=== PATIENT | male | born 1985 | race Caucasian/White ===

== ENCOUNTER → 2017-07-29 | Outpatient (REF) | payer OTHER ==
[~2017-07-29] MED LIST: CIPR-214 PO; DOCU-416 PO; HYDR-4309 PO; IBUP600T22 PO; KET10 PO; LEVO-85 PO; LOR5/325 PO; OXYC-865 PO; SULF-198 PO
== END ==
PROVIDERS: ATTEND Physician Assistant Medical
DX: J02.9 Acute pharyngitis, unspecified (principal)
CPT/HCPCS: 87070

== ENCOUNTER 2018-04-05 08:26 | Emergency (ER) | payer SELFPAY ==
[~2018-04-05 08:26] MED LIST changes: -HYDR-4309 PO; +HYDR-653 PO
--- NOTE | 2018-04-05 08:49 | ER Report ---
History and Physical Time Seen By MD: 08:32 Hx. of Stated Complaint: PT REPORTS FALLING LAST NIGHT, REPORTS RIGHT FOREARM PAIN HPI/ROS CHIEF COMPLAINT: Right forearm pain HISTORY OF PRESENT ILLNESS: Patient is a 32-year-old male with no other significant past medical history who presents to the emergency department complaining of mid shaft right forearm pain status post fall last evening. Patient states that he was bringing his dogs and and slipped on the outside of his house causing him to strike his right forearm against the doorframe of his house. Since that time he's had increased pain and swelling and decreased range of motion secondary to pain. 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 Allergies: Coded Allergies: Penicillins (Verified Allergy, Unknown, 04/05/18) Home Meds Discontinued Reported Medications Sulfamethoxazole/Trimet 800-160 Mg Tab (BACTRIM DS TABLET) 1 Each Tablet, 1 TAB PO BID, #14 TAB 03/30/16 Docusate Sodium (COLACE) 100 Mg Capsule, 100 MG PO BID, #30 CAPSULE 03/30/16 Ibuprofen (IBUPROFEN) 600 Mg Tablet, 1 TAB PO Q6H PRN for PAIN, #20 TAB 03/30/16 Hydrocodone Bit/Acetaminophen (HYDROCODON-ACETAMINOPHEN 5-325) 1 Each Tablet, 1- 2 EACH PO Q6H PRN for PAIN, #30 TAB 03/30/16 Discontinued Scripts Ciprofloxacin 500 Mg Tab (CIPROFLOXACIN 500 MG TAB) 500 Mg Tablet, 500 MG PO Q12 H, #20 TAB 0 Refills Prov:AUTUMN MORALES MD 03/21/16 Past Medical/Surgical History Noncontributory Hx Smoking: Yes (1 pack every 2 days since age 17) Smoking Status: Current: Every Day Smoker Hx Substance Use Disorder: No Hx Alcohol Use: Yes Constitutional Vital Sign - Last 24 Hours 04/05/18 08:29 Temp 97.7 Pulse 84 Resp 16 B/P (MAP) 94/75 Pulse Ox 95 O2 Delivery Room Air Physical Exam Gen: Awake alert in no acute distress. Examination of the Right hand reveals no acute deformity. The patient is able to give a thumbs up sign, is able to make an okay sign, and is able to AB duct the fingers. Sensation is intact over the dorsal 1st web space, the volar aspect of the 2nd finger, and the volar aspect of the 5th finger. Capillary refill is brisk. Examination of the right forearm shows an abrasion that does not look secondar sarah infected to the mid shaft of the forearm there is also swelling when compared to the left forearm. Medical Decision Making EKG/Imaging Imaging 04/05/2018 8:51:14 am x-ray of the right forearm reveals no acute fracture although there is some soft tissue swelling to the midshaft area of the forearm. X-ray was interpreted by myself ED Course/Re-evaluation ED Course 04/05/2018 8:49:20 am After history and physical exam was performed differential diagnosis was formulated which includes but is not limited to forearm fracture, forearm contusion, abrasion. Plan at this time will be oral pain medication and x-ray of the right forearm. Decision to Disposition Date: Apr 05, 2018 Decision to Disposition Time: 08:51 Depart Departure Latest Vital Signs Vital Signs Date Time Temp Pulse Resp B/P (MAP) Pulse Ox O2 Delivery O2 Flow Rate FiO2 04/05/18 08:29 97.7 84 16 94/75 95 Room Air Impression: Primary Impression: Contusion Condition: Improved Disposition: HOME OR SELF-CARE New Scripts Hydrocodone Bit/Acetaminophen (HYDROCODON-ACETAMINOPHEN 5-325) 1 Each Tablet 1 EACH PO Q4H PRN for PAIN, #12 TAB 0 Refills Prov: JORGE PHILLIPS MD 04/05/18 Departure Forms: ER Transition Record, Medications Reconciliation, Off Work/School Form, School or Work Release?: Work Number of days to be released: 2 Patient Portal Information Patient Instructions: Contusion in Adults (ED) Problem Qualifiers Primary Impression: Contusion Encounter type: initial encounter Contusion area: forearm Laterality: right Qualified Codes: S50.11XA - Contusion of right forearm, initial encounter JORGE PHILLIPS MD Apr 05, 2018 08:49
[2018-04-05] MEDS ORDERED: LOR5/325 PO (08:53)
[2018-04-05 09:00] VITALS: BP 97/67
--- NOTE | 2018-04-05 09:02 | RADIOLOGY IMAGING REPORT ---
FACILITY: [facility] - [place] PATIENT NAME: Jd Fitch : 1985 MR: [id number] V: [id number] EXAM DATE: ORDERING PHYSICIAN: JORGE PHILLIPS TECHNOLOGIST: Location: [facility] [place] Patient: Jd Fitch : 1985 Visit/Account:[id number] Date of Sevice: 04/05/2018 FOREARM RIGHT COMPARISON: None. HISTORY: fall TECHNIQUE: 3 views of the right forearm were obtained without weightbearing technique FINDINGS: BONES: No significant arthropathy, fracture, dislocation, or significant osseous lesion. Elbow align ment within normal limits for technique. SOFT TISSUES: Negative. No visible soft tissue swelling. EFFUSION: No appreciable elbow effusion. OTHER: Negative. IMPRESSION: No acute fractures in the right forearm. Report Dictated By: Kalen Gurrola at 04/05/2018 8:54 AM Report E-Signed By: Kalen Gurrola at 04/05/2018 8:56 AM WSN:[id number]
== END 2018-04-05 09:11 | disposition home or self-care (01) ==
LOC: ER 08:39
DX: S50.11XA Contusion of right forearm, initial encounter (principal); W18.49XA Other slipping, tripping and stumbling without falling, initial encounter
CPT/HCPCS: 99283

== ENCOUNTER 2018-09-17 17:53 | Emergency (ER) | payer SELFPAY ==
--- NOTE | 2018-09-17 18:05 | ER Report ---
History and Physical Time Seen By MD: 18:03 Hx. of Stated Complaint: patient was putting on an oil filter at work and injured his left wrist HPI/ROS CHIEF COMPLAINT: Left wrist pain HISTORY OF PRESENT ILLNESS: 33-year-old male patient presents to emergency room with complaint of left wrist pain. Patient states that he was changing an oil filter in a [employer]. He states that he the stool that he was standing on slipped and he fell. He states he had a hold of the filter with his left hand. He felt a popping sound in the left wrist. He states that since that time he has a hard time waxing his hand. He states he is not able to move his fingers. He states he is not taking any medication for this. He did come in to be evaluated at the behest of his boss. He denies any numbness or tingling. He states he has wrist to the ventral side of the wrist as well as the dorsal side. REVIEW OF SYSTEMS: Respiratory: No cough, no dyspnea. Cardiovascular: No chest pain, no palpitations. Gastrointestinal: No vomiting, no abdominal pain. Musculoskeletal: As noted above Allergies: Coded Allergies: Penicillins (Verified Allergy, Unknown, 04/05/18) Home Meds Discontinued Scripts Hydrocodone Bit/Acetaminophen (HYDROCODON-ACETAMINOPHEN 5-325) 1 Each Tablet, 1 EACH PO Q4H PRN for PAIN, #12 TAB 0 Refills Prov:JORGE PHILLIPS MD 04/05/18 Past Medical/Surgical History Patient denies any pertinent medical or surgical history. Reviewed Nurses Notes: Yes Hx Smoking: Yes (1 pack every 2 days since age 17) Smoking Status: Current: Every Day Smoker Hx Substance Use Disorder: No Hx Alcohol Use: Yes Constitutional Vital Sign - Last 24 Hours 09/17/18 09/17/18 09/17/18 09/17/18 17:55 17:58 18:00 18:23 Temp 98.5 Pulse 81 83 Resp 20 B/P (MAP) 130/84 (99) 130/84 125/78 (94) Pulse Ox 95 93 O2 Delivery Room Air 09/17/18 18:30 B/P (MAP) 126/84 (98) Physical Exam General Appearance: The patient is alert, has no immediate need for airway protection and no current signs of toxicity. Respiratory: Chest is non tender, lungs are clear to auscultation. Cardiac: regular rate and rhythm Musculoskeletal: Extremities have full range of motion and are non tender. Patient has tenderness to the ventral aspect of the wrist, the lateral aspect of the forearm, along the muscle. Patient also has some tenderness to the dorsal aspect of the wrist. Skin: No rashes or lesions. No bruising noted. DIFFERENTIAL DIAGNOSIS: After history and physical exam differential diagnosis was considered for fracture, contusion, sprain. Medical Decision Making EKG/Imaging Imaging XR WRIST 3 OR MORE VIEWS LT HISTORY: wrist pain Three-view examination of the left wrist. FINDINGS: No acute fracture of the distal radius or ulna. The carpal and metacarpals are well-maintained. There appears to be soft tissue swelling over the thenar eminence. IMPRESSION: 1. Negative wrist for acute bony pathology. Soft tissue contusion/swelling seen over the thenar eminence. Report Dictated By: Andriy Jordan MD at 09/17/2018 6:34 PM Report E-Signed By: Andriy Jordan MD at 09/17/2018 6:36 PM ED Course/Re-evaluation ED Course Patient is admitted and examined, history and physical were obtained. Differential diagnoses were considered. On examination lungs are clear, heart is regular, left wrist is tender to the ventral aspect as well as the dorsal aspect. There is no bruising noted. X-rays done of the left wrist which was negative for fractures. We will go ahead and place patient in a universal splint. We will have him ice and rest his wrist. He is to follow-up with his primary care provider in the next week. Patient verbalized understanding and agreement with plan. Decision to Disposition Date: Sep 17, 2018 Decision to Disposition Time: 18:44 Depart Departure Latest Vital Signs Vital Signs Date Time Temp Pulse Resp B/P (MAP) Pulse Ox O2 Delivery O2 Flow Rate FiO2 09/17/18 18:30 126/84 (98) 09/17/18 18:23 83 93 09/17/18 17:58 98.5 20 Room Air Impression: Primary Impression: Left wrist sprain Condition: Improved Disposition: HOME OR SELF-CARE Patient Instructions: Wrist Sprain (ED) Additional Instructions: Limit activity by pain. Ice the wrist 2-3 times a day for 10-15 minutes. Get plenty of rest. Take Tylenol or Ibuprofen as needed for pain. Follow up with your primary care provider in the next week. Problem Qualifiers Primary Impression: Left wrist sprain Encounter type: initial encounter Qualified Codes: S63.502A - Unspecified sprain of left wrist, initial encounter VIKTOR NOWAK Sep 17, 2018 18:05
[2018-09-17 18:30] VITALS: BP 126/84
--- NOTE | 2018-09-17 18:42 | RADIOLOGY IMAGING REPORT ---
FACILITY: [facility] - [place] PATIENT NAME: Jd Fitch : 1985 MR: [id number] V: [id number] EXAM DATE: ORDERING PHYSICIAN: VIKTOR NOWAK TECHNOLOGIST: Location: [facility] - [place] Patient: Jd Fitch : 1985 Visit/Account:[id number] Date of Sevice: 09/17/2018 XR WRIST 3 OR MORE VIEWS LT HISTORY: wrist pain Three-view examination of the left wrist. FINDINGS: No acute fracture of the distal radius or ulna. The carpal and metacarpals are well-maintained. The re appears to be soft tissue swelling over the thenar eminence. IMPRESSION: 1. Negative wrist for acute bony pathology. Soft tissue contusion/swelling seen over the thenar isidro nence. Report Dictated By: Andriy Jordan MD at 09/17/2018 6:34 PM Report E-Signed By: Andriy Jordan MD at 09/17/2018 6:36 PM WSN:[id number]
== END 2018-09-17 18:53 | disposition home or self-care (01) ==
LOC: ER 18:08
DX: S63.502A Unspecified sprain of left wrist, initial encounter (principal)
CPT/HCPCS: 73110; 99283; L3908

== ENCOUNTER → 2018-10-04 | Outpatient (REF) | payer SELFPAY ==
[2018-10-04 10:36] LABS: PLATELET COUNT, AUTOMATED 226 K/uL (150-450)
== END ==
PROVIDERS: ATTEND Nurse Practitioner Family
DX: R10.9 Unspecified abdominal pain (principal)
CPT/HCPCS: 82040; 82150; 82247; 82310; 82374; 82435; 82565; 82947; 83690; 84075; 84132; 84155; 84295; 84450; 84460; 84520; 85025